=== PATIENT | male | born 1970 | race Caucasian/White ===

== ENCOUNTER 2018-01-14 15:26 | Emergency (ER) | payer BC, OTHER ==
--- NOTE | 2018-01-14 17:12 | ED ---
Laceration/Wound HPI - HPI Summary HPI Summary: Patient is a 47 y/o M w/ c/o laceration to his right eyebrow. He was scratched by his cat today [employer]. Patient denies vision changes and states he received a tetanus shot three weeks ago. On triage, pain is rated 1/10, nothing is noted to aggravate/alleviate Sx. Home medications and allergies are reviewed. - History of Current Complaint Stated Complaint: RT EYELID LAC Time Seen by Provider: 01/14/18 16:58 Hx Obtained From: Patient Onset/Duration: Lasting Hours, Still Present Aggravating: Nothing Alleviating: Nothing Onset Severity: Mild - 1/10 Current Severity: Mild - 1/10 Pain Intensity: 1 Pain Scale Used: 0-10 Numeric - 1/10 Associated Signs & Symptoms: Pain - Allergy/Home Medications Allergies/Adverse Reactions: Allergies Allergy/AdvReac Type Severity Reaction Status Date / Time No Known Allergies Allergy Verified 01/14/18 15:32 Home Medications: Home Medications raNITIdine HCl [Zantac 75] 75 mg PO DAILY PRN 01/14/18 [History Confirmed ] PMH/Surg Hx/FS Hx/Imm Hx Endocrine/Hematology History: Denies: Hx Anticoagulant Therapy, Hx Diabetes, Hx Thyroid Disease Cardiovascular History: Denies: Hx Hypertension, Hx Pacemaker/ICD Respiratory History: Denies: Hx Asthma, Hx Chronic Obstructive Pulmonary Disease (COPD) History: Denies: Hx Renal Disease Neurological History: Denies: Hx Dementia, Hx Seizures - Immunization History Date of Tetanus Vaccine: this month Infectious Disease History: No Infectious Disease History: Denies: Hx Hepatitis, Hx Human Immunodeficiency Virus (HIV), Traveled Outside the [place] in Last 30 Days - Family History Known Family History: Negative: Blood Disorder - Social History Alcohol Use: None Substance Use Type: Reports: None Smoking Status (MU): Never Smoked Tobacco Review of Systems Positive: Other - NEGATIVE: vision changes Positive: Other - laceration at right eyebrow All Other Systems Reviewed And Are Negative: Yes Physical Exam - Summary Physical Exam Summary: Appearance: Well appearing, no pain distress Skin: warm, dry, reflects adequate perfusion; 1 cm superficial laceration of the right eyebrow. Head/face: normal Eyes: EOMI, KAREEM ENT: normal Neck: supple, non-tender Respiratory: CTA, breath sounds present Cardiovascular: RRR, pulses symmetrical Abdomen: non-tender, soft Bowel: present Musculoskeletal: normal, strength/ROM intact Neuro: normal, sensory motor intact, A&Ox3 Triage Information Reviewed: Yes Vital Signs On Initial Exam: Initial Vitals Temp Pulse Resp BP Pulse Ox 98.1 F 113 16 147/82 96 01/14/18 15:29 01/14/18 15:29 01/14/18 15:29 01/14/18 15:29 01/14/18 15:29 Vital Signs Reviewed: Yes Procedures - Procedure Summary Procedure Summary: 1 cm right eyebrow laceration was closed with dermabond, no complications. - Laceration/Wound Repair 1 Location: head - right eyebrow Description: Linear Closure: Skin Adhesive - dermabond Layer Closure?: Yes Diagnostics - Vital Signs Vital Signs Temp Pulse Resp BP Pulse Ox 01/14/18 15:29 98.1 F 113 16 147/82 96 - Laboratory Lab Statement: Any lab studies that have been ordered have been reviewed, and results considered in the medical decision making process. Laceration Repair Course/Dx - Course Course Of Treatment: Patient is a 47 y/o M w/ c/o laceration to his right eyebrow. He was scratched by his cat today [employer]. Patient denies vision changes and states he received a tetanus shot three weeks ago. On physical exam, patient is noted to have 1 cm superficial laceration of the right eyebrow. Laceration was closed using dermabond. Layer was closed, no complications. Patient is discharged to home and instructed to follow up with PCP. Patient is agreeable with this plan. Dx of cat scratch of face, right eyebrow laceration. - Clinical Impression Provider Diagnoses: Cat scratch of face, Laceration of eyebrow, right Discharge - Sign-Out/Discharge Documenting (check all that apply): Patient Departure - discharge - Discharge Plan Condition: Stable Disposition: HOME Prescriptions: Amoxicillin/Clavulanate TAB* [Augmentin TAB 875*] 875 mg PO BID #14 tab Patient Education Materials: Facial Laceration (ED) Referrals: Esau Rose MD [Primary Care Provider] - 3 Days Additional Instructions: FOLLOW UP WITH YOUR PRIMARY CARE PHYSICIAN IN THREE DAYS. RETURN TO ED FOR ANY NEW OR WORSENING SYMPTOMS. - Billing Disposition and Condition Condition: STABLE Disposition: Home - Attestation Statements Document Initiated by Scribe: Yes Documenting Scribe: Bj Smith Provider For Whom Scribe is Documenting (Include Credential): William Edwards MD Scribe Attestation: I, Bj Smith , scribed for William Edwards MD on 01/14/18 at 1755. Scribe Documentation Reviewed: Yes Provider Attestation: The documentation as recorded by the Bj marcelo accurately reflects the service I personally performed and the decisions made by me, William Edwards MD
[2018-01-14 17:38] VITALS: BP 136/69
== END 2018-01-14 17:38 | disposition home or self-care (01) ==
LOC: ED 15:26
DX: S01.111A Laceration without foreign body of right eyelid and periocular area, initial encounter (principal); W55.03XA Scratched by cat, initial encounter; Y92.9 Unspecified place or not applicable
CPT/HCPCS: 12011; 99281